=== PATIENT | female | born 1975 | race African-American/Black ===

== ENCOUNTER 2018-09-30 23:50 | Inpatient (IN) ==
[2018-10-01] MEDS ORDERED: Ipratropium/Albuterol Neb 3 ML IH ONE ×2 (00:06→06:52)
[2018-10-01] MEDS ORDERED: methylPREDNISolone 125 MG/2 ML VIAL IVP ONE (00:11)
--- NOTE | 2018-10-01 00:16 | Emergency Department Note ---
Disposition Clinical Impression: Asthma with exacerbation Qualifiers: Asthma severity: unspecified severity Asthma persistence: unspecified Qualified Code(s): J45.901 - Unspecified asthma with (acute) exacerbation Disposition: Still a Patient Condition: Fair Referrals: NONE,PCP [Primary Care Provider] - Forms: ED Satisfaction Letter Time of Disposition: 07:14 SOB HPI - General Chief Complaint: ED Shortness of Breath/Dyspnea Stated Complaint: coral Time Seen by Provider: 10/01/18 00:00 Source: patient Mode of arrival: private vehicle Limitations: no limitations Nursing Notes Reviewed: Yes Vital Signs Reviewed: Yes - History of Present Illness Patient is a 43-year-old female with a past medical history of asthma that reports that she started to feel acutely short of breath at approximately 10:30 this evening. Patient try a nebulizer at home without relief, states that she has been out of her albuterol inhalers for the last month. She states that she does not usually need to use her inhalers every day, it is just as needed. Patient was brought in by a friend, denies fevers or chills, nausea or vomiting, constipation, diarrhea, headache, dizziness lightheadedness, signs or symptoms of an upper respiratory infection. - Related Data Previous Rx's Medication Instructions Recorded Albuterol Neb [Proventil Neb] 2.5 mg IH Q4HR PRN #20 vial.neb 05/18/18 Albuterol Sulfate [Albuterol 2 puff IH Q4HR PRN #1 hfa.aer.ad 05/18/18 Inhaler] Allergies Allergy/AdvReac Type Severity Reaction Status Date / Time No Known Allergies Allergy Verified 09/30/18 23:58 All systems ED: reviewed and negative except as stated. Constitutional: Denies: fever, chills ENT ED: Denies: throat pain, congestion Cardiovascular: Denies: chest pain Respiratory: Reports: dyspnea, wheezes. Denies: hemoptysis, sputum production Gastrointestinal: Denies: abdominal pain, nausea, vomiting, diarrhea, constipation Musculoskeletal: Denies: back pain, neck pain Integumentary: Denies: rash, abrasion Neurological: Denies: headache, weakness, numbness, paresthesias Hematological/Lymphatic: Denies: easy bleeding, easy bruising Allergic/Immunologic: Denies: facial swelling, urticaria Past Medical History - Past Medical History Medical history: Reports: asthma Psychiatric history: Reports: no psych history - Social History Smoking Status: 2nd Hand Smoke Exposure Smokeless Tobacco Status: No Alcohol use: Reports: occasionally Drug use: Reports: none Physical Exam General: Pt is sitting upright in bed, leaning forward, speaking in 3-4 word sentences, appears to be acutely short of breath Head: atraumatic, normocephalic. ENT: No conjunctival injection, no scleral icterus. PERRLA. EOMI. Neuro: No focal deficits, no speech deficit, no facial droop, mentating well. Pulm: Diffuse wheezes present in alexia upper lobes, alexia lower lobes with some wheezes but sound diminished Cardio: heart tachycardic, no murmurs. Chest not tender to palpation. Abd: Soft, non-distended. Normoactive bowel sounds. Non-tender to palpation. No guarding. Non rigid. Extremities: No LE edema. No cyanosis, clubbing. Skin: warm, dry, intact. No rashes. Psych: Appropriate mood and affect. Answers questions appropriately. Cooperative with exam. - General Limitations: no limitations General appearance: alert Course Course Narrative: Pt with known hx of asthma, has been out of inhalers for last month, suspect acute asthma exacerbation. Will treat with 3 back to back duonebs, administer IV solumedrol 125, and get CXR. - Reevaluation(s) Reevaluation #1: Pts work of breathing improved, but her lung marin still exhibit wheezing in all marin and respiratory rate remains high. Will administer 2 albuterol nebulizer treatments. Suspicion that pt will require admission for asthma exacerbation. Time: 02:54 Reevaluation #2: Pt continues to be short of breath with increased work of breathing. Lungs still diffusely wheezing. Time: 06:50 Vital Signs O2 Sat by Pulse Oximetry 91 09/30/18 23:59 Temperature 98.3 F 10/01/18 00:07 Pulse Rate 104 10/01/18 05:55 Respiratory Rate 20 10/01/18 05:55 Blood Pressure 135/97 10/01/18 05:55 O2 Sat by Pulse Oximetry 92 10/01/18 05:55 Oxygen Delivery Oxygen Delivery Nasal Cannula Shortness of Breath/Dyspnea - MDM Narrative Medical decision making narrative: Pt will be signed out to dayshift - Dr. Tam Jordan and Dr. Matthew Bean. - Medical Records Medical records reviewed: Yes I reviewed the patient's medical records. - Lab Data Lab results reviewed: Yes I reviewed the patient's lab results. Result diagrams: 10/01/18 05:47 10/01/18 05:47 Lab Results 10/01/18 10/01/18 Range/Units 05:47 05:47 WBC 15.9 H (4.3-11.1) K/mcL RBC 4.66 (3.82-4.97) M/mcL Hgb 14.1 (11.5-15.4) g/dL Hct 41.8 (35.3-44.9) % MCV 89.7 (83.0-100.0) fL MCH 30.3 (28.0-33.3) pg MCHC 33.7 (31.6-35.5) g/dL RDW 12.9 (11.5-14.5) % Plt Count 232 (140-400) K/mcL MPV 11.0 (9.4-12.4) fL Immature Gran % 0.4 (0-4) % Seg Neutrophils % 95.9 % Lymphocytes % 2.8 % Monocytes % 0.6 % Eosinophils % 0.1 % Basophils % 0.2 % Neutrophils # 15.3 H (1.6-8.9) K/mcL Lymphocytes # 0.5 L (0.6-4.6) K/mcL Monocytes # 0.1 (0.0-1.3) K/mcL Eosinophils # 0.0 (0.0-0.6) K/mcL Basophils # 0.0 (0.0-0.2) K/mcL Sodium 138 (136-145) mEq/L Potassium 3.6 (3.5-5.1) mEq/L Chloride 107 (98-107) mEq/L Carbon Dioxide 22 L (23-29) mEq/L BUN 16 (6-20) mg/dL Creatinine 0.75 (0.60-1.20) mg/dL Est GFR ( Amer) > 60 (> 60) Est GFR (Non-Af Amer) > 60 (> 60) BUN/Creatinine Ratio 21 (6-26) Glucose 163 H (70-105) mg/dL Calculated Osmolality 291 (280-300) Calcium 9.0 (8.6-10.3) mg/dL
[2018-10-01] MEDS ORDERED: Albuterol 2.5 MG/3 ML NEBULIZER IH ONE (02:14)
--- NOTE | 2018-10-01 05:42 | Emergency Department Note ---
Disposition Clinical Impression: Asthma with exacerbation Qualifiers: Asthma severity: unspecified severity Asthma persistence: unspecified Qualified Code(s): J45.901 - Unspecified asthma with (acute) exacerbation Disposition: Still a Patient Condition: Fair Referrals: NONE,PCP [Primary Care Provider] - Forms: ED Satisfaction Letter General Adult HPI - General Chief complaint: ED Shortness of Breath/Dyspnea Stated complaint: coral Time Seen by Provider: 10/01/18 00:00 Source: patient Mode of arrival: private vehicle Limitations: no limitations Nursing Notes Reviewed: Yes Vital Signs Reviewed: Yes - History of Present Illness Pain Scale: 0 - Related Data Previous Rx's Medication Instructions Recorded Albuterol Neb [Proventil Neb] 2.5 mg IH Q4HR PRN #20 vial.neb 05/18/18 Albuterol Sulfate [Albuterol 2 puff IH Q4HR PRN #1 hfa.aer.ad 05/18/18 Inhaler] Allergies Allergy/AdvReac Type Severity Reaction Status Date / Time No Known Allergies Allergy Verified 09/30/18 23:58 Constitutional: Denies: fever, chills ENT ED: Denies: throat pain, congestion Cardiovascular: Denies: chest pain Respiratory: Reports: dyspnea, wheezes. Denies: hemoptysis, sputum production Gastrointestinal: Denies: abdominal pain, nausea, vomiting, diarrhea, constipation Musculoskeletal: Denies: back pain, neck pain Integumentary: Denies: rash, abrasion Neurological: Denies: headache, weakness, numbness, paresthesias Hematological/Lymphatic: Denies: easy bleeding, easy bruising Allergic/Immunologic: Denies: facial swelling, urticaria Past Medical History - Past Medical History Medical history: Reports: asthma Psychiatric history: Reports: no psych history - Social History Smoking Status: 2nd Hand Smoke Exposure Smokeless Tobacco Status: No Alcohol use: Reports: occasionally Drug use: Reports: none Physical Exam - General Limitations: no limitations General appearance: alert Course Vital Signs O2 Sat by Pulse Oximetry 91 09/30/18 23:59 Temperature 98.3 F 10/01/18 00:07 Pulse Rate 97 10/01/18 07:23 Respiratory Rate 22 10/01/18 07:23 Blood Pressure 143/82 10/01/18 07:23 O2 Sat by Pulse Oximetry 93 10/01/18 07:23 Oxygen Delivery Oxygen Delivery Nasal Cannula Medical Decision Making - Lab Data Lab results reviewed: Yes I reviewed the patient's lab results. Result diagrams: 10/01/18 05:47 10/01/18 05:47 Lab Results 10/01/18 10/01/18 Range/Units 05:47 05:47 WBC 15.9 H (4.3-11.1) K/mcL RBC 4.66 (3.82-4.97) M/mcL Hgb 14.1 (11.5-15.4) g/dL Hct 41.8 (35.3-44.9) % MCV 89.7 (83.0-100.0) fL MCH 30.3 (28.0-33.3) pg MCHC 33.7 (31.6-35.5) g/dL RDW 12.9 (11.5-14.5) % Plt Count 232 (140-400) K/mcL MPV 11.0 (9.4-12.4) fL Immature Gran % 0.4 (0-4) % Seg Neutrophils % 95.9 % Lymphocytes % 2.8 % Monocytes % 0.6 % Eosinophils % 0.1 % Basophils % 0.2 % Neutrophils # 15.3 H (1.6-8.9) K/mcL Lymphocytes # 0.5 L (0.6-4.6) K/mcL Monocytes # 0.1 (0.0-1.3) K/mcL Eosinophils # 0.0 (0.0-0.6) K/mcL Basophils # 0.0 (0.0-0.2) K/mcL Sodium 138 (136-145) mEq/L Potassium 3.6 (3.5-5.1) mEq/L Chloride 107 (98-107) mEq/L Carbon Dioxide 22 L (23-29) mEq/L BUN 16 (6-20) mg/dL Creatinine 0.75 (0.60-1.20) mg/dL Est GFR ( Amer) > 60 (> 60) Est GFR (Non-Af Amer) > 60 (> 60) BUN/Creatinine Ratio 21 (6-26) Glucose 163 H (70-105) mg/dL Calculated Osmolality 291 (280-300) Calcium 9.0 (8.6-10.3) mg/dL - Radiology Data Radiology results reviewed: Yes I reviewed the patient's radiology results. Chest X-Ray 10/01/18 00:11 IMPRESSION: No acute process. D/ / Deric Nelson MD / Deric Nelson MD Interpreting Provider: Deric Nelson MD Critical Care Time Critical Care Time: Yes Total Critical Care Time: 40 Attestation: Critical care performed: Time is exclusive of separately billable procedures. Time includes: direct patient care, patient reassessment, coordination of patient care, interpretation of data (laboratory data, radiology data, and respiratory data), review of p atient's medical records, medical consultation and documentation of patient care. Procedures included in critical care time: Procedures excluded from critical care time: Attestation Statement - Attestation Attestation: IHernan MD, personally evaluated this patient and discussed their management with the resident physician. I reviewed the resident's note and agree with the documented findings, medical decision making, and plan of care. 43-year-old female with history of asthma presents to the emergency department with a complaint of wheezing and shortness of breath which started earlier this evening but became severe about 1-2 hours prior to arrival. Patient used a nebulizer treatment at home without relief. She has not been ill otherwise. No fever. No increased cough. No chest pain. On examination patient is a well-developed well-nourished female in moderate respiratory distress. She is alert and oriented 3. There is no diaphoresis. Breath sounds are decreased bilaterally with diffuse tight bilateral inspiratory and expiratory wheezes. Heart tachycardic and regular. Abdomen soft and nontender with normal bowel sounds. Chest x-ray negative. Patient received triple DuoNeb treatment and Solu-Medrol IV. She had slight improvement in her wheezing and felt a little better. She received 2 additional nebulizer treatments of albuterol. On reexamination after all the above treatments patient still has diffuse bilateral inspiratory and expiratory wheezes. Oxygen saturation on room air drops to 93%. Patient has only had to be admitted once with her asthma in the distant past. She states that it has not been this bad in many years and she does not feel like she can go home. Dr. Diaz discussed the patient with the hospitalist, Dr. Aguilera, for admission however he requested the patient have an ABG prior to acceptance. At morning shift change patient is signed out to the oncoming dayshift team, Dr. Matthew Bean and Dr. Tam Jordan.
[2018-10-01 06:06] LABS: Basophils % 0.2 %; Eosinophils % 0.1 %; Hematocrit 41.8 % (35.3-44.9); Hemoglobin 14.1 g/dL (11.5-15.4); Immature Granulocytes % 0.4 % (0-4); Lymphocytes # 0.5 K/mcL (0.6-4.6); Lymphocytes % 2.8 %; Mean Corpuscular HGB Conc 33.7 g/dL (31.6-35.5); Mean Corpuscular Hemoglobin 30.3 pg (28.0-33.3); Mean Corpuscular Volume 89.7 fL (83.0-100.0); Monocytes # 0.1 K/mcL (0.0-1.3); Monocytes % 0.6 %; Neutrophils # 15.3 K/mcL (1.6-8.9); Platelet Count 232 K/mcL (140-400); Red Blood Count 4.66 M/mcL (3.82-4.97); Red Cell Distribution Width 12.9 % (11.5-14.5); Segmented Neutrophils % 95.9 %
[2018-10-01 06:25] LABS: BUN/Creatinine Ratio 21 (6-26); Blood Urea Nitrogen 16 mg/dL (6-20); Carbon Dioxide 22 mEq/L (23-29); Chloride 107 mEq/L (98-107); Glucose 163 mg/dL (70-105); Osmolality,Calculated 291 (280-300); Potassium 3.6 mEq/L (3.5-5.1); Sodium 138 mEq/L (136-145); eGFR For Non-African Americans > 60 (> 60)
[2018-10-01 08:33] LABS: VBG HCO3 21 mEq/L (21-27); VBG PCO2 41 mmHg (41-51); VBG PH 7.32 pH Units (7.32-7.42); VBG PO2 56 mmHg (25-50)
[2018-10-01] MEDS ORDERED: Acetaminophen 325 MG TABLET PO PRN (09:38)
[2018-10-01] MEDS ORDERED: Ondansetron 4 MG/2 ML VIAL IVP PRN (09:38)
--- NOTE | 2018-10-01 09:39 | Emergency Department Note ---
Disposition Clinical Impression: Asthma with exacerbation Qualifiers: Asthma severity: unspecified severity Asthma persistence: unspecified Qualified Code(s): J45.901 - Unspecified asthma with (acute) exacerbation Disposition: Still a Patient Condition: Fair Time of Disposition: 09:38 Chest Pain HPI - General Chief Complaint: ED Shortness of Breath/Dyspnea Stated Complaint: coral Time Seen by Provider: 10/01/18 00:00 Source: patient Mode of arrival: private vehicle Limitations: no limitations - History of Present Illness Severity scale (1-10): 0 - Related Data Previous Rx's Medication Instructions Recorded Albuterol Neb [Proventil Neb] 2.5 mg IH Q4HR PRN #20 vial.neb 05/18/18 Albuterol Sulfate [Albuterol 2 puff IH Q4HR PRN #1 hfa.aer.ad 05/18/18 Inhaler] Allergies Allergy/AdvReac Type Severity Reaction Status Date / Time No Known Allergies Allergy Verified 09/30/18 23:58 Constitutional: Denies: fever, chills ENT ED: Denies: throat pain, congestion Cardiovascular: Denies: chest pain Respiratory: Reports: dyspnea, wheezes. Denies: hemoptysis, sputum production Gastrointestinal: Denies: abdominal pain, nausea, vomiting, diarrhea, con stipation Musculoskeletal: Denies: back pain, neck pain Integumentary: Denies: rash, abrasion Neurological: Denies: headache, weakness, numbness, paresthesias Hematological/Lymphatic: Denies: easy bleeding, easy bruising Allergic/Immunologic: Denies: facial swelling, urticaria Chest Pain PMH - Past Medical History Medical history: Reports: asthma Psychiatric history: Reports: no psych history - Social History Smoking Status: 2nd Hand Smoke Exposure Alcohol use: Reports: occasionally Drug use: Reports: none Physical Exam - General Limitations: no limitations General appearance: alert Course Course Narrative: Patient was signed out from the nighttime team. Patient essentially presenting with an asthma exacerbation. Has been out of her home medications over the last month. Received IV steroids and duo nebs and albuterol treatment. Did end up having additional breathing treatments as well as magnesium. D-dimer was negative. VBG looked okay. Patient admitted the hospitalist service. Vital Signs O2 Sat by Pulse Oximetry 91 09/30/18 23:59 Temperature 98.3 F 10/01/18 00:07 Pulse Rate 97 10/01/18 07:23 Respiratory Rate 22 10/01/18 07:23 Blood Pressure 143/82 10/01/18 07:23 O2 Sat by Pulse Oximetry 93 10/01/18 07:23 Oxygen Delivery Oxygen Delivery Nasal Cannula Chest Pain - Lab Data Result diagrams: 10/01/18 05:47 10/01/18 05:47 Lab Results 10/01/18 10/01/18 10/01/18 Range/Units 05:47 05:47 08:13 WBC 15.9 H (4.3-11.1) K/mcL RBC 4.66 (3.82-4.97) M/mcL Hgb 14.1 (11.5-15.4) g/dL Hct 41.8 (35.3-44.9) % MCV 89.7 (83.0-100.0) fL MCH 30.3 (28.0-33.3) pg MCHC 33.7 (31.6-35.5) g/dL RDW 12.9 (11.5-14.5) % Plt Count 232 (140-400) K/mcL MPV 11.0 (9.4-12.4) fL Immature Gran % 0.4 (0-4) % Seg Neutrophils % 95.9 % Lymphocytes % 2.8 % Monocytes % 0.6 % Eosinophils % 0.1 % Basophils % 0.2 % Neutrophils # 15.3 H (1.6-8.9) K/mcL Lymphocytes # 0.5 L (0.6-4.6) K/mcL Monocytes # 0.1 (0.0-1.3) K/mcL Eosinophils # 0.0 (0.0-0.6) K/mcL Basophils # 0.0 (0.0-0.2) K/mcL D-Dimer 312 (0-500) ng/mLFEU VBG pH (7.32-7.42) pH Units VBG pCO2 (41-51) mmHg VBG pO2 (25-50) mmHg VBG HCO3 (21-27) mEq/L Sodium 138 (136-145) mEq/L Potassium 3.6 (3.5-5.1) mEq/L Chloride 107 (98-107) mEq/L Carbon Dioxide 22 L (23-29) mEq/L BUN 16 (6-20) mg/dL Creatinine 0.75 (0.60-1.20) mg/dL Est GFR ( Amer) > 60 (> 60) Est GFR (Non-Af Amer) > 60 (> 60) BUN/Creatinine Ratio 21 (6-26) Glucose 163 H (70-105) mg/dL Calculated Osmolality 291 (280-300) Calcium 9.0 (8.6-10.3) mg/dL 10/01/18 Range/Units 08:28 WBC (4.3-11.1) K/mcL RBC (3.82-4.97) M/mcL Hgb (11.5-15.4) g/dL Hct (35.3-44.9) % MCV (83.0-100.0) fL MCH (28.0-33.3) pg MCHC (31.6-35.5) g/dL RDW (11.5-14.5) % Plt Count (140-400) K/mcL MPV (9.4-12.4) fL Immature Gran % (0-4) % Seg Neutrophils % % Lymphocytes % % Monocytes % % Eosinophils % % Basophils % % Neutrophils # (1.6-8.9) K/mcL Lymphocytes # (0.6-4.6) K/mcL Monocytes # (0.0-1.3) K/mcL Eosinophils # (0.0-0.6) K/mcL Basophils # (0.0-0.2) K/mcL D-Dimer (0-500) ng/mLFEU VBG pH 7.32 (7.32-7.42) pH Units VBG pCO2 41 (41-51) mmHg VBG pO2 56 H (25-50) mmHg VBG HCO3 21 (21-27) mEq/L Sodium (136-145) mEq/L Potassium (3.5-5.1) mEq/L Chloride (98-107) mEq/L Carbon Dioxide (23-29) mEq/L BUN (6-20) mg/dL Creatinine (0.60-1.20) mg/dL Est GFR ( Amer) (> 60) Est GFR (Non-Af Amer) (> 60) BUN/Creatinine Ratio (6-26) Glucose (70-105) mg/dL Calculated Osmolality (280-300) Calcium (8.6-10.3) mg/dL Attestation Statement - Attestation Attestation: I, Tam Jordan, examined this patient and my medical decision-making was reviewed with the BOAT DECKHAND/PA/Advanced Practice Nurse/Resident Physician. I agree with the documented findings, disposition and treatment plan as described except to the extent set forth below. 43-year-old female presents emergency Department with concerns of difficulty in breathing. She is received in sign out at 7 AM pending reevaluation, disposition. Patient was given additional breathing treatments and magnesium sulfate in the emergency department to attempt to treat her likely asthma exacerbation. He should not states she had a similar asthma exacerbation in the mid 90s but has been fairly well since that time. She apparently had been using her prescribed medications of the past week when she continued to worsen. D-dimer is negative. Patient will be admitted to the hospitalist for further care and evaluation of asthma exacerbation.
--- NOTE | 2018-10-01 09:43 | Internal Med History&Physical ---
Date of Encounter: 10/01/18 Time of Encounter: 09:41 Internal Medicine - H&P: HPI Chief complaint: SOB Admitted From: Emergency Dept History of present illness: Caitlyn Sanchez is a 43 F w hx asthma who p/w SOB. Patient states she occasionally gets tight chest which improves spontaneously or with albuterol inhaler. Last admission for asthma was in 2004. Never intubated. 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 She noticed chest getting a bit tight, and when she went home she wasn't feeling well so took a nap. Her daughter woke her up and said she was "whistling" while she slept, and patient could tell right away that she was wheezing. SOB continued to worsen so she came to hospital. Denies F/C/MURRAY/N/V/D, no CP, no leg swelling. 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 In the ED, pt tachypneic and tachycardic, working to breath, very wheezy on exam. D-dimer negative, CXR normal. Given solumedrol and frequent nebs with only minor improvement. VBG w CO2 41 which corrects down a bit and fits with her current clinical status of mild resting dyspnea without tachypnea. Admitted to med/surg (no need for ICU at this point) for further eval. Past medical, surgical, social, and family histories reviewed and updated as below, with addition to PSH of no surgeries and FH of children with asthma. Past Med Surg Social Fam HX - Past Medical History Medical history: asthma Psychiatric history: no psych history - Social History Smoking Status: 2nd Hand Smoke Exposure Smokeless Tobacco Status: No Alcohol use: occasionally Drug use: none Internal Medicine - H&P: Meds Albuterol Neb [Proventil Neb] 2.5 mg IH Q4HR PRN #20 vial.neb 05/18/18 [Rx] Albuterol Sulfate [Albuterol Inhaler] 2 puff IH Q4HR PRN #1 hfa.aer.ad 05/18/18 [Rx] Allergy/AdvReac Type Severity Reaction Status Date / Time No Known Allergies Allergy Verified 09/30/18 23:58 All Systems PM: A 10-system review of systems was performed and is negative for pertinent findings except as documented above in the HPI. - Constitutional Vitals: Temp Pulse Resp BP Pulse Ox 98.3 F 97 22 143/82 93 10/01/18 00:07 10/01/18 07:23 10/01/18 07:23 10/01/18 07:23 10/01/18 07:23 Exam: General: NAD, good eye contact, ill appearing and mildly labored breathing Head: Atraumatic, normocephalic. Face symmetric Eyes: EOMI, sclerae anicteric ENT: Mucous membranes moist. Normal oral mucosa and dentition. Trachea midline. Thoracic: No visible chest wall deformities. Biphasic wheezing throughout entirety of each phase in all lung marin, prolonged expiration Cardio: Normal S1 and S2, regular rhythm, tachycardic Abdomen: Soft, nontender, nondistended. Extremities: Warm, well perfused. DP pulses 2+ b/l. No edema Skin: Intact. No rashes, bruises, or ulcers Neuro: Awake, fully oriented. Good memory, concentration, attention. Speech fluent. Internal Med - H&P Results - Labs CBC & Chem 7: 10/01/18 05:47 10/01/18 05:47 Labs: Short CBC 10/01/18 Range/Units 05:47 WBC 15.9 H (4.3-11.1) K/mcL Hgb 14.1 (11.5-15.4) g/dL Hct 41.8 (35.3-44.9) % Plt Count 232 (140-400) K/mcL Neutrophils # 15.3 H (1.6-8.9) K/mcL BMP 10/01/18 05:47 Sodium 138 Potassium 3.6 Chloride 107 Carbon Dioxide 22 L BUN 16 Creatinine 0.75 Glucose 163 H Calcium 9.0 - ABG Interpretation ABG results: 10/01/18 08:28 VBG pH 7.32 VBG pCO2 41 VBG pO2 56 H VBG HCO3 21 - Impressions ITS Impressions Chest X-Ray 10/01/18 00:11 IMPRESSION: No acute process. D/ / Deric Nelson MD / Deric Nelson MD Interpreting Provider: Deric Nelson MD - Summary of Assessment and Plan Summary of Assessment and Plan: Caitlyn Sanchez is a 43 F w hx asthma who p/w SOB and wheezing concerning for asthma exacerbation. Asthma in acute exacerbation / Status asthmaticus: VBG without hypercapnia, is slightly concerning that CO2 is in normal range as opposed to low as expected but pt clinically is improving from presentation. Rec'd solumedrol 125 and Mg 2g in ED. - check Mg level - albuterol nebs q2h&prn - solumedrol 40 tid until improves and will switch to 40 daily - will need started/continued on inhaled corticosteroids at discharge Acute hypoxic respiratory failure: requiring 2L O2 to maintain sats >93% - supplemental O2, wean as able - treat cause as above - walk test prior to discharge Hypophosphatemia: replace and monitor PPx: lovenox FEN: regular, no MIVF Lines: PIV Consults: Code: Full Dispo: patient requires inpatient eval and management at this time. Anticipate 2-3 days. Will be homegoing
[2018-10-01 10:01] LABS: Magnesium 2.1 mg/dL (1.6-2.6); Phosphorous 2.6 mg/dL (2.7-4.5)
[2018-10-01] MEDS: Ipratropium/Albuterol Neb 3 ML IH SCH ×4 (11:22→23:18)
[2018-10-01] MEDS: Albuterol 2.5 MG/3 ML NEBULIZER IH SCH ×4 (11:23→23:22)
[2018-10-01] MEDS: MethylPREDNISolone 40 MG/ML VIAL IVP SCH ×3 (11:43→20:15)
[2018-10-01 12:51] LABS: Adenovirus Not Detected (Not Detect); Bordetella Pertussis Not Detected (Not Detect); Chlamydophila pneumoniae Not Detected (Not Detect); Coronavirus 229E Not Detected (Not Detect); Coronavirus HKU1 Not Detected (Not Detect); Coronavirus NL63 Not Detected (Not Detect); Coronavirus OC43 Not Detected (Not Detect); Human Metapneumovirus Not Detected (Not Detect); Human Rhinovirus/Enterovirus DETECTED (Not Detect); Influenza A Subtype 2009 H1 Not Detected (Not Detect); Influenza A Untypeable Not Detected (Not Detect); Influenza B Not Detected (Not Detect); Mycoplasma pneumoniae Not Detected (Not Detect); Parainfluenza Virus 1 Not Detected (Not Detect); Parainfluenza Virus 2 Not Detected (Not Detect); Parainfluenza Virus 3 Not Detected (Not Detect); Parainfluenza Virus 4 Not Detected (Not Detect); Respiratory Syncytial Virus Not Detected (Not Detect)
[2018-10-02] MEDS ORDERED: Albuterol 2.5 MG/3 ML NEBULIZER IH PRN (01:19)
[2018-10-02] MEDS: Benzonatate 100 MG CAPSULE PO PRN (02:53)
[2018-10-02] MEDS: Ipratropium/Albuterol Neb 3 ML IH SCH ×6 (03:48→23:29)
[2018-10-02] MEDS: MethylPREDNISolone 40 MG/ML VIAL IVP SCH ×3 (05:02→20:08)
[2018-10-02] MEDS: *HR* Enoxaparin 40 MG/0.4 ML SYRINGE SQ SCH (05:02)
[2018-10-02 05:24] LABS: Hematocrit 39.6 % (35.3-44.9); Hemoglobin 13.7 g/dL (11.5-15.4); Mean Corpuscular HGB Conc 34.6 g/dL (31.6-35.5); Mean Corpuscular Hemoglobin 30.4 pg (28.0-33.3); Mean Platelet Volume 11.5 fL (9.4-12.4); Platelet Count 238 K/mcL (140-400); Red Cell Distribution Width 13.4 % (11.5-14.5)
[2018-10-02 05:42] LABS: BUN/Creatinine Ratio 19 (6-26); Blood Urea Nitrogen 11 mg/dL (6-20); Calcium 9.6 mg/dL (8.6-10.3); Carbon Dioxide 23 mEq/L (23-29); Chloride 107 mEq/L (98-107); Glucose 141 mg/dL (70-105); Magnesium 2.3 mg/dL (1.6-2.6); Osmolality,Calculated 286 (280-300); Potassium 4.2 mEq/L (3.5-5.1); Sodium 137 mEq/L (136-145); eGFR For Non-African Americans > 60 (> 60)
--- NOTE | 2018-10-02 07:59 | Internal Med Progress Note ---
Hospitalist Progress Note - Encounter Date of Encounter: 10/02/18 Time of Encounter: 07:32 - Subjective Interval History: Patient seen and examined this morning at bedside. No acute overnight events. Breathing significantly improved. Denies any chest pain. Has some cough. Denies any bowel or urinary complaints. - Exam Vitals: Temp Pulse Resp BP Pulse Ox 98.1 F 102 18 140/76 93 10/02/18 07:48 10/02/18 07:48 10/02/18 07:48 10/02/18 07:48 10/02/18 07:48 Exam: General: In no acute distress. Respiratory exam: b/l rhonchi, wheezes. Good air entry Cardiovascular exam: RRR, +S1, +S2. no murmur, gallop, rubs. GI/Abdominal exam: Non-tender, Non-distended, normal bowel sounds, soft, no peritoneal signs. Extremities exam: no pedal edema, pulses palpable in b/l lower extremities. no calf tenderness Neurological exam: CN II-XII intact, AO X3, no focal deficits. Skin exam: No skin rash - Summary of Assessment and Plan Summary of Assessment and Plan: Asthma in acute exacerbation - likely precipitated by enteroviral infection - improved with steroids, magnesium and duonebs q4h - Will taper steroids. c/w albuterol nebs q4prn - will need to be discharged with inhaled corticosteroids Acute hypoxic respiratory failure - related to asthma exacerbation - management as above - walk test prior to discharge Leukocytosis - likely related to steroid use - CXR without acute process - antibiotics not indicated for now DVT PPx - lovenox - Time Spent with Patient Total time spent is greater than 50% in coordination of care (as documented) at patient's floor/unit and/or counseling patient: Internal Medicine: Result - Labs CBC & Chem 7: 10/02/18 04:29 10/02/18 04:29 Labs: Short CBC 10/02/18 Range/Units 04:29 WBC 21.3 H (4.3-11.1) K/mcL Hgb 13.7 (11.5-15.4) g/dL Hct 39.6 (35.3-44.9) % Plt Count 238 (140-400) K/mcL BMP 10/01/18 10/02/18 05:47 04:29 Sodium 138 137 Potassium 3.6 4.2 Chloride 107 107 Carbon Dioxide 22 L 23 BUN 16 11 Creatinine 0.75 0.58 L Glucose 163 H 141 H Calcium 9.0 9.6 - ABG Interpretation ABG results: PT/INR, D-dimer D-Dimer 312 ng/mLFEU (0-500) 10/01/18 08:13 Consult Discharge Plan - Plan Referrals: NONE,PCP [Primary Care Provider] -
[2018-10-03] MEDS: Ipratropium/Albuterol Neb 3 ML IH SCH ×3 (03:47→11:09)
[2018-10-03] MEDS: *HR* Enoxaparin 40 MG/0.4 ML SYRINGE SQ SCH (05:48)
[2018-10-03] MEDS: Benzonatate 100 MG CAPSULE PO PRN (05:53)
[2018-10-03 08:01] VITALS: BP 115/58
[2018-10-03] MEDS: MethylPREDNISolone 40 MG/ML VIAL IVP SCH (08:15)
--- NOTE | 2018-10-03 10:14 | Discharge Summary ---
- NOTES TO OUTPATIENT PROVIDER Notes to Outpatient Provider: Patient was admitted for asthma exacerbation secondary to rhinovirus infection. Improved with steroids and bronchodilators. Did not require oxygen at the time of discharge. Will be discharged home with pulmonary follow-up as an outpatient. Date of Encounter: 10/03/18 Time of Encounter: 07:30 - Discharge Diagnosis (1) Asthma with exacerbation Priority: Primary Status: Acute Qualifiers: Asthma severity: unspecified severity Asthma persistence: unspecified Qualified Code(s): J45.901 - Unspecified asthma with (acute) exacerbation Hospital course: Ms. Sanchez is a 43 year old female who was admitted for asthma exacerbation sec ondary to rhinovirus infection. Improved with steroids and bronchodilators. Did not require oxygen at the time of discharge. Will be discharged home with tapering course of steroids and pulmonary follow-up as an outpatient. Discharge discussed with: patient, nurse - Time Spent with Patient Total time spent providing and/or coordinating discharge services: 31 mins - Discharge Medications Prescriptions: New Benzonatate [Tessalon] 100 mg PO TID PRN #12 capsule PRN Reason: Cough predniSONE [PredniSONE] 40 mg PO DAILY #9 tablet Continue Albuterol Neb [Proventil Neb] 2.5 mg IH Q4HR PRN #30 vial.neb PRN Reason: Wheezing Albuterol Sulfate [Albuterol Inhaler] 2 puff IH Q4HR PRN #1 hfa.aer.ad PRN Reason: Shortness Of Breath Home Medications: Albuterol Neb [Proventil Neb] 2.5 mg IH Q4HR PRN #30 vial.neb 10/03/18 [Rx] Albuterol Sulfate [Albuterol Inhaler] 2 puff IH Q4HR PRN #1 hfa.aer.ad 10/03/18 [Rx] Benzonatate [Tessalon] 100 mg PO TID PRN #12 capsule 10/03/18 [Rx] predniSONE [PredniSONE] 40 mg PO DAILY #9 tablet 10/03/18 [Rx] Allergies/Adverse Reactions: Allergy/AdvReac Type Severity Reaction Status Date / Time No Known Allergies Allergy Verified 10/01/18 20:39 Date of admission: 10/01/18 09:38 Primary care physician: PCP NONE Consults: 10/02/18 08:52 Consult to Nurse Navigator [CONS] Routine Comment: COPD - Constitutional Vitals: Temp Pulse Resp BP Pulse Ox 98.3 F 76 16 115/58 97 10/03/18 07:57 10/03/18 07:57 10/03/18 07:57 10/03/18 07:57 10/03/18 07:57 Exam: General: In no acute distress. Respiratory exam: minimal, scattered bilateral rhonchi, wheezes. Good air entry Cardiovascular exam: RRR, +S1, +S2. GI/Abdominal exam: Soft, non-tender, Non-distended Neurological exam: no focal deficits. - Patient Status Disposition: Home, Self-Care Condition: Fair Functional capacity at discharge: independent ambulation Overall status at discharge: patient is progressing back to baseline - Discharge Instructions Instructions: Asthma (DC) Follow Up With: Martín Smith DO [Partnered Physician] - 10/03/18 4:00 pm (Please bring your ID, insurance card, and list of any home medications that you are taking. If you need to cancel or reschedule your appointment please give the office a 24 hour notice. Thank you. ) Additional Instructions: Discharged on tapering course of steroid nebulizer and inhaler refilled - Diet and Activity Activity: resume usual activities as tolerated Diet: regular diet
== END 2018-10-03 13:56 | disposition home or self-care (01) | DRG 141 ==
LOC: 3BNU 23:50 → EMEROOARM 23:50 → SUATTDRO 10-01 09:38 → 3BNU 10-01 10:51
PROVIDERS: ADMIT Internal Medicine; ATTEND Internal Medicine

== ENCOUNTER 2019-03-19 17:18 | Inpatient (IN) ==
[2019-03-19] MEDS ORDERED: 0.9 % Sodium Chloride 1,000 ML IVC ONE ×2 (17:28→18:51)
[2019-03-19] MEDS ORDERED: Ibuprofen 600 MG TABLET PO ONE (17:57)
--- NOTE | 2019-03-19 18:00 | Emergency Department Note ---
Disposition Clinical Impression: Pyelonephritis Sepsis Qualifiers: Sepsis type: sepsis due to unspecified organism Sepsis acute organ dysfunction status: without acute organ dysfunction Qualified Code(s): A41.9 - Sepsis, unspecified organism Disposition: Admitted As Inpatient Condition: Fair Time of Disposition: 20:36 General Adult HPI - General Chief complaint: ED Back Pain/Injury Stated complaint: ABD Pain,MURRAY Time Seen by Provider: 03/19/19 17:26 Source: patient Mode of arrival: ambulatory Limitations: no limitations Nursing Notes Reviewed: Yes Vital Signs Reviewed: Yes - History of Present Illness HPI Narrative: 44F with PMHx of asthma presents emergency department with sudden onset of right-sided back pain and a generalized unwell feeling. Patient states that yesterday after eating she developed some right-sided back pain that hit her abdomen over. She has been generally not feeling well since this and states she has been dealing with chills and hot sweats on and off since onset of the back pain. She describes the pain as coming and going, sometimes a 0 and other times going up to a 10 out of 10. The pain is exacerbated with movement and by touch. She has been able to eat without increase in the pain. She denies urinary symptoms, chest pain, cough, abdominal pain. She also admits to having a headache over the past day and states that she does not normally have headaches. She took 2 Aleve yesterday which helped with her back pain for a couple of hour s. She took 2 more Aleve earlier today which did not help with her pain. Pain Scale: 2 - Related Data Home Medications Medication Instructions Recorded Confirmed Albuterol Neb [Proventil Neb] 2.5 mg IH Q8H PRN 03/19/19 03/19/19 Albuterol Sulfate [Proventil 2 puff IH Q6H PRN 03/19/19 03/19/19 Inhaler] Allergies Allergy/AdvReac Type Severity Reaction Status Date / Time No Known Allergies Allergy Verified 03/19/19 17:21 All systems ED: reviewed and negative except as stated. Review of Systems: As Per HPI Constitutional: Denies: fever, chills, weakness Cardiovascular: Denies: chest pain, palpitations, dyspnea on exertion Respiratory: Denies: cough, dyspnea, wheezes Gastrointestinal: Denies: abdominal pain, nausea, vomiting Genitourinary: Denies: dysuria, hematuria Musculoskeletal: Reports: back pain Neurological: Reports: headache Endocrine: Denies: fatigue Past Medical History - Past Medical History Attestation: Yes The following information was validated with the patient. Source: patient Medical history: Reports: asthma Psychiatric history: Reports: no psych history - Social History Smoking Status: Former smoker Smokeless Tobacco Status: No Alcohol use: Reports: occasionally Drug use: Reports: none Physical Exam - General Limitations: no limitations General appearance: alert, in no apparent distress - Head Head exam: atraumatic, normocephalic - Chest Chest inspection: Present: normal inspection. Absent: tenderness, rash - Respiratory Respiratory exam: Present: normal lung sounds bilaterally. Absent: wheezes - Cardiovascular Cardiovascular exam: Present: normal rhythm, tachycardia - Abdominal Exam Abdominal exam: Present: soft, Non-Tender. Absent: distention, guarding, rebou nd, rigidity, Nichole's sign, tenderness at McBurney's Point - Extremities Exam Extremities exam: Present: normal inspection. Absent: tenderness, pedal edema - Back Exam Back exam: Present: CVA tenderness (R). Absent: CVA tenderness (L) - Neurological Exam Neurological exam: Present: alert, oriented X3 - Psychiatric Psychiatric exam: Present: normal affect, normal mood - Skin Skin exam: Present: warm, dry, intact Course Vital Signs Temperature 101.1 F H 03/19/19 17:19 Pulse Rate 132 03/19/19 17:19 Respiratory Rate 20 03/19/19 17:19 Blood Pressure 118/81 03/19/19 17:19 O2 Sat by Pulse Oximetry 97 03/19/19 17:19 Temperature 100.5 F H 03/19/19 19:10 Pulse Rate 96 03/19/19 20:31 Respiratory Rate 20 03/19/19 20:31 Blood Pressure 126/71 03/19/19 20:31 O2 Sat by Pulse Oximetry 98 03/19/19 20:31 Oxygen Delivery Oxygen Delivery Room Air Medical Decision Making - [facility] Narrative Medical decision making narrative: Patient presents with sudden onset of right-sided back pain which has been waxing and waning quality since onset yesterday along with a fever concerning for a kidney infection versus infected stone. We will obtain basic labs, urinalysis and CAT scan of the patient's abdomen and pelvis as well as a chest x-ray to rule out other infectious processes. 1855 - patient's initial labs show a significant leukocytosis of 26,000, but other labs including lactic acid are within normal limits. She has not been able to urinate for us at this time. We will obtain urine via straight catheter to look for source of infection. CT of the abdomen and pelvis has been taken and is pending at this time. We will administer another liter of fluids. 1945 - pt has a UTI. We will administer Rocephin and plan on admission to the hospital for pyelonephritis and sepsis. Pt is agreeable with this plan of care. - Medical Records Medical records reviewed: Yes I reviewed the patient's medical records. - Lab Data Lab results reviewed: Yes I reviewed the patient's lab results. Result diagrams: 03/19/19 17:38 03/19/19 17:38 Lab Results 03/19/19 03/19/19 03/19/19 Range/Units 17:38 17:38 17:38 WBC 26.5 H (4.3-11.1) K/mcL RBC 4.69 (3.82-4.97) M/mcL Hgb 14.6 (11.5-15.4) g/dL Hct 42.7 (35.3-44.9) % MCV 91.0 (83.0-100.0) fL MCH 31.1 (28.0-33.3) pg MCHC 34.2 (31.6-35.5) g/dL RDW 12.0 (11.5-14.5) % Plt Count 184 (140-400) K/mcL MPV 11.5 (9.4-12.4) fL Seg Neutrophils % 86.0 % Band Neutrophils % 8.0 H (0-4) % Lymphocytes % 6.0 % Neutrophils # 24.9 H (1.6-8.9) K/mcL Lymphocytes # 1.6 (0.6-4.6) K/mcL Platelet Estimate Normal (Normal) PT 13.1 H (9.4-12.1) Seconds INR 1.2 Sodium 133 L (136-145) mEq/L Potassium 3.5 (3.5-5.1) mEq/L Chloride 103 (98-107) mEq/L Carbon Dioxide 21 L (23-29) mEq/L BUN 10 (6-20) mg/dL Creatinine 0.83 (0.60-1.20) mg/dL Est GFR ( Amer) > 60 (> 60) Est GFR (Non-Af Amer) > 60 (> 60) BUN/Creatinine Ratio 12 (6-26) Glucose 183 H (70-105) mg/dL Calculated Osmolality 280 (280-300) Lactic Acid (0.5-2.2) mmol/L Calcium 8.4 L (8.6-10.3) mg/dL Phosphorus 1.6 L (2.7-4.5) mg/dL Magnesium 1.7 (1.6-2.6) mg/dL Total Bilirubin 0.9 (0.3-1.0) mg/dL Direct Bilirubin 0.2 (0.0-0.2) mg/dL Indirect Bilirubin 0.7 (0.0-1.2) mg/dL AST 17 (13-39) Units/L ALT 15 (7-52) Units/L Alkaline Phosphatase 61 (34-104) Units/L Troponin I 0.03 (< 0.04) ng/mL Serum Total Protein 6.4 (6.4-8.9) g/dL Albumin 3.8 (3.5-5.7) g/dL Globulin 2.6 (2.4-3.5) g/dL Albumin/Globulin Ratio 1.5 (1.1-2.2) Serum , Qual (Negative) Urine Color (Yellow) Urine Clarity (Clear) Urine pH (5.0-8.0) pH Units Ur Specific [place] (1.010-1.025) Urine Protein (Neg-Trace) mg/dL Urine Glucose (UA) (Normal) mg/dL Urine Ketones (Negative) mg/dL Urine Blood (Negative) Urine Nitrite (Negative) Urine Bilirubin (Negative) Urine Urobilinogen (Normal) mg/dL Ur Leukocyte Esterase (Negative) Urine Microscopic RBC (0-3) per hpf Urine Microscopic WBC (0-3) per hpf Ur Squamous Epith Cells (None-Few) per lpf Urine Bacteria (None-Few) per hpf Hyaline Casts (None-Few) per lpf Urine Mucus (Few) Ur Culture Indicated? (NO) 03/19/19 03/19/19 03/19/19 Range/Units 17:38 17:38 19:12 WBC (4.3-11.1) K/mcL RBC (3.82-4.97) M/mcL Hgb (11.5-15.4) g/dL Hct (35.3-44.9) % MCV (83.0-100.0) fL MCH (28.0-33.3) pg MCHC (31.6-35.5) g/dL RDW (11.5-14.5) % Plt Count (140-400) K/mcL MPV (9.4-12.4) fL Seg Neutrophils % % Band Neutrophils % (0-4) % Lymphocytes % % Neutrophils # (1.6-8.9) K/mcL Lymphocytes # (0.6-4.6) K/mcL Platelet Estimate (Normal) PT (9.4-12.1) Seconds INR Sodium (136-145) mEq/L Potassium (3.5-5.1) mEq/L Chloride (98-107) mEq/L Carbon Dioxide (23-29) mEq/L BUN (6-20) mg/dL Creatinine (0.60-1.20) mg/dL Est GFR ( Amer) (> 60) Est GFR (Non-Af Amer) (> 60) BUN/Creatinine Ratio (6-26) Glucose (70-105) mg/dL Calculated Osmolality (280-300) Lactic Acid 1.5 (0.5-2.2) mmol/L Calcium (8.6-10.3) mg/dL Phosphorus (2.7-4.5) mg/dL Magnesium (1.6-2.6) mg/dL Total Bilirubin (0.3-1.0) mg/dL Direct Bilirubin (0.0-0.2) mg/dL Indirect Bilirubin (0.0-1.2) mg/dL AST (13-39) Units/L ALT (7-52) Units/L Alkaline Phosphatase (34-104) Units/L Troponin I (< 0.04) ng/mL Serum Total Protein (6.4-8.9) g/dL Albumin (3.5-5.7) g/dL Globulin (2.4-3.5) g/dL Albumin/Globulin Ratio (1.1-2.2) Serum , Qual Negative (Negative) Urine Color Yellow (Yellow) Urine Clarity Cloudy A (Clear) Urine pH 6.0 (5.0-8.0) pH Units Ur Specific [place] 1.024 (1.010-1.025) Urine Protein 100 H (Neg-Trace) mg/dL Urine Glucose (UA) 100 H (Normal) mg/dL Urine Ketones 15 H (Negative) mg/dL Urine Blood Small H (Negative) Urine Nitrite Positive A (Negative) Urine Bilirubin Negative (Negative) Urine Urobilinogen Normal (Normal) mg/dL Ur Leukocyte Esterase Moderate H (Negative) Urine Microscopic RBC 5-15 H (0-3) per hpf Urine Microscopic WBC TNTC H (0-3) per hpf Ur Squamous Epith Cells Many H (None-Few) per lpf Urine Bacteria Many H (None-Few) per hpf Hyaline Casts None Seen (None-Few) per lpf Urine Mucus Few (Few) Ur Culture Indicated? YES A (NO) - Radiology Data Radiology results reviewed: Yes I reviewed the patient's radiology results. - EKG Data EKG #1 EKG attestation: Yes I reviewed and interpreted this EKG. EKG results narrative: EKG obtained at 1820 on 03/19/2019 Heart rate 1 11 bpm, AR interval 133, QRS duration 75, QT 302, QTC 411 Sinus tachycardia with left anterior fascicular block. No signs of ST segment elevations or depressions. No other T-wave abnormalities. There are inverted P waves in leads V1, V2, aVL. There are no changes when compared to previous EKG dated 07/13/2010. Attestation Statement - Attestation Attestation: I, Tam Jordan, examined this patient and my medical decision-making was reviewed with the SNORKELLING INSTRUCTOR/PA/Advanced Practice Nurse/Resident Physician. I agree with the documented findings, disposition and treatment plan as described except to the extent set forth below. 44 yo female presents emergency Department with concerns of right flank pain. Patient states symptoms have been present over the past 24 hours. She denies significant hematuria or dysuria. Patient denies recent trauma. Denies chest pain or palpitations or shortness of breath. Patient has right-sided CVA tenderness palpation. She has a urinary tract infection on urinalysis. Patient was tachycardic on initial presentation this improved with IV fluids. Patient was treated with ceftriaxone for likely pyelonephritis and sepsis. The high probability of a clinically significant, sudden or life threatening deterioration of the cardiovascular system(s) required my full and direct attention, intervention and personal management. The aggregate critical care time was 45 minutes. This time is in addition to time spent performing reported procedures but includes the following: x Data Review and interpretation x Patient assessment and monitoring of vital signs x Documentation x Medication orders and management
[2019-03-19 18:09] LABS: Hematocrit 42.7 % (35.3-44.9); Hemoglobin 14.6 g/dL (11.5-15.4); Mean Corpuscular HGB Conc 34.2 g/dL (31.6-35.5); Mean Corpuscular Hemoglobin 31.1 pg (28.0-33.3); Mean Platelet Volume 11.5 fL (9.4-12.4); Platelet Count 184 K/mcL (140-400); Red Blood Count 4.69 M/mcL (3.82-4.97); White Blood Count 26.5 K/mcL (4.3-11.1)
[2019-03-19 18:14] LABS: INR 1.2; Prothrombin Time 13.1 Seconds (9.4-12.1)
[2019-03-19 18:28] LABS: Alanine Aminotransferase 15 Units/L (7-52); Albumin 3.8 g/dL (3.5-5.7); Albumin/Globulin Ratio 1.5 (1.1-2.2); Alkaline Phosphatase 61 Units/L (34-104); Aspartate Amino Transferase 17 Units/L (13-39); BUN/Creatinine Ratio 12 (6-26); Bilirubin,Direct 0.2 mg/dL (0.0-0.2); Bilirubin,Indirect 0.7 mg/dL (0.0-1.2); Bilirubin,Total 0.9 mg/dL (0.3-1.0); Blood Urea Nitrogen 10 mg/dL (6-20); Calcium 8.4 mg/dL (8.6-10.3); Carbon Dioxide 21 mEq/L (23-29); Chloride 103 mEq/L (98-107); Globulin 2.6 g/dL (2.4-3.5); Glucose 183 mg/dL (70-105); Magnesium 1.7 mg/dL (1.6-2.6); Osmolality,Calculated 280 (280-300); Phosphorous 1.6 mg/dL (2.7-4.5); Potassium 3.5 mEq/L (3.5-5.1); Sodium 133 mEq/L (136-145); Total Protein 6.4 g/dL (6.4-8.9); Troponin I 0.03 ng/mL (< 0.04); eGFR For African Americans > 60 (> 60); eGFR For Non-African Americans > 60 (> 60)
[2019-03-19 19:01] LABS: Lymphocytes # 1.6 K/mcL (0.6-4.6); Neutrophils # 24.9 K/mcL (1.6-8.9); Platelet Estimate Normal (Normal)
[2019-03-19 19:30] LABS: Bilirubin,Urine Negative (Negative); Blood,Urine Small (Negative); Clarity,Urine Cloudy (Clear); Color,Urine Yellow (Yellow); Glucose,Urine (UA) 100 mg/dL (Normal); Ketones,Urine 15 mg/dL (Negative); Leukocyte Esterase,Urine Moderate (Negative); Nitrite,Urine Positive (Negative); Protein,Urine 100 mg/dL (Neg-Trace); Specific Gravity,Urine 1.024 (1.010-1.025); Urobilinogen,Urine Normal (Normal)
[2019-03-19 19:33] LABS: Bacteria,Urine Many per hpf (None-Few); Squamous Epithelial Cell,Urine Many per lpf (None-Few); WBC,Urine TNTC per hpf (0-3)
[2019-03-19] MEDS ORDERED: cefTRIAXone 1,000 MG in Water for inj. (sterile) 10 ML IVP ONE (19:43)
[2019-03-19 20:05] LABS: Hyaline Casts,Urine None Seen per lpf (None-Few); Mucus,Urine Few (Few)
[2019-03-19] MEDS ORDERED: Naloxone 0.4 MG/ML INJ IVP PRN (21:42)
[2019-03-19] MEDS ORDERED: Dextrose Gel 15 GM/37.5 ML TUBE PO PRN ×2 (21:42)
[2019-03-19] MEDS ORDERED: *HR* Dextrose 50 % in Water (Syg) 50 ML SYRINGE IVP PRN (21:42)
[2019-03-19] MEDS ORDERED: D5% in Water 1,000 ML IVC PRN (21:42)
[2019-03-19] MEDS ORDERED: Ondansetron ODT 4 MG TAB.RAPDIS SL PRN (21:42)
[2019-03-19] MEDS ORDERED: Ringers Solution, Lactated 1,000 ML IVC SCH (21:45)
--- NOTE | 2019-03-19 22:00 | Internal Med History&Physical ---
Date of Encounter: 03/20/19 Time of Encounter: 21:50 Internal Medicine - H&P: HPI Chief complaint: back pain Admitted From: Home Plans for Post Hospital Care: Home History of present illness: Ms. Sanchez is a 44 year old female with past medical history of asthma presented to the ED for right lower back pain. Face to face encounter occurred at 20:10pm. Patient reported that the low back pain awakened the patient from sleep in the morning. The pain of the time was a sharp nonradiating localized to the left lower back worsened with movement and not alleviated despite taking Aleve and showering. Reported chills, otherwise no association of fever, nausea, vomiting, diarrhea, chest pain, shortness of breath. Personally reviewed patient's past family, medical, surgical and social History. Patient reported that she c ontinues to menstruate and is currently in her menstrual period currently. Patient also reported sexual intercourse unsafe due to history of tubal ligation with significant other 2 days ago and then the next day felt the sharp right lower back pain. Code status discussed and the patient is a full code. Past Med Surg Social Fam HX - Past Medical History Medical history: asthma Psychiatric history: no psych history - Past Surgical History Additional surgical history: Sinus surgery, Tonsils and adenoids - Social History Smoking Status: Former smoker Smokeless Tobacco Status: No Alcohol use: occasionally Drug use: none - Family History Mother Living Status: Still Living Hx Family Respiratory Disorders: Yes (Asthma) Father Living Status: Still Living Hx Family Cancer: Yes (prostate) Internal Medicine - H&P: Meds Albuterol Neb [Proventil Neb] 2.5 mg IH Q8H PRN 03/19/19 [History] Albuterol Sulfate [Proventil Inhaler] 2 puff IH Q6H PRN 03/19/19 [History] Allergy/AdvReac Type Severity Reaction Status Date / Time No Known Allergies Allergy Verified 03/19/19 17:21 All Systems PM: A 10-system review of systems was performed and is negative for pertinent findings except as documented above in the HPI. Review of systems: General: No unintentional weightloss, No fever Head: No headahce, No injury. Ears: No discharge, No earache Eyes: No drainage, No eye pain Mouth and Throat: No new ulcers, No pain Nose and Sinus: No new congestion, No pain, Respiratory: No cough, No sputum production, No dyspnea Cardiovascular: No chest pain, No palpitations. Gastrointestinal: No nausea, No vomiting. No abdominal pain. Genital Tract: No discharge, No pain Urinary Tract: No dysuria, No discharge. MSK: No new/worsening joint pain, No new/worsening muscle ache. Endocrine: No cold intolerance, No polyuria Psychological: No suicidal, No homocidal ideation. - Constitutional Vitals: Temp Pulse Resp BP Pulse Ox 100.2 F H 99 20 110/78 98 03/19/19 21:18 03/19/19 21:18 03/19/19 21:18 03/19/19 21:18 03/19/19 21:18 General appearance: Present: A&O X 0 Exam: General Appearance: Appearing as age, well-nourished in moderate acute distress. Head: Atraumatic normocephalic Skin: Normal texture, normal turgor, warm, dry. Eyes: Conjunctivae not pale with no erythema, drainage, or ulcers. Anicteric. Neck: No Lymphadenopathy in the anterior/posterior cervical chain. No th yromegaly, masses or ulcers. Trachea midline. Heart: RRR, no murmurs. Capillary refill 3 seconds Lungs: No accessory muscle usage, lungs clear to auscultation bilaterally, no wheezes or crackles. Extremities: No pitting edema, No clubbing, No cyanosis. Abdomen: Non-distended, normoactive bowel sounds. non-tender to palpation, no hepatomegally. No guarding. Neuro: AOx3 with no new sensory loss or focal deficits. MSK: Strength 5/5 Upper extremity equal bilaterally. Strength 5/5 Lower extremity equal bilaterally. CVA tenderness right side Internal Med - H&P Results - Labs CBC & Chem 7: 03/20/19 05:11 03/20/19 05:11 Labs: Short CBC 03/19/19 Range/Units 17:38 WBC 26.5 H (4.3-11.1) K/mcL Hgb 14.6 (11.5-15.4) g/dL Hct 42.7 (35.3-44.9) % Plt Count 184 (140-400) K/mcL Neutrophils # 24.9 H (1.6-8.9) K/mcL BMP 03/19/19 17:38 Sodium 133 L Potassium 3.5 Chloride 103 Carbon Dioxide 21 L BUN 10 Creatinine 0.83 Glucose 183 H Calcium 8.4 L Cardiac Enzymes 03/19/19 Range/Units 17:38 Troponin I 0.03 (< 0.04) ng/mL Liver Function 03/19/19 Range/Units 17:38 Total Bilirubin 0.9 (0.3-1.0) mg/dL Direct Bilirubin 0.2 (0.0-0.2) mg/dL AST 17 (13-39) Units/L ALT 15 (7-52) Units/L Alkaline Phosphatase 61 (34-104) Units/L Albumin 3.8 (3.5-5.7) g/dL Urine 03/19/19 Range/Units 19:12 Urine Color Yellow (Yellow) Urine Clarity Cloudy A (Clear) Urine pH 6.0 (5.0-8.0) pH Units Ur Specific [place] 1.024 (1.010-1.025) Urine Protein 100 H (Neg-Trace) mg/dL Urine Glucose (UA) 100 H (Normal) mg/dL - Impressions ITS Impressions Chest X-Ray 03/19/19 17:28 IMPRESSION: Negative portable study. D/ / Sofia Lea Cha, MD / Sofia Lea Cha, MD Interpreting Provider: Sofia Lea Cha, MD Abdomen/Pelvis CT 03/19/19 18:06 IMPRESSION: 1. Nonobstructing calculi mid to upper left kidney. 2. No ureter calculus or hydronephrosis. 3. Normal appendix right lower quadrant. 4. Mild diverticulosis coli without CT evidence of acute diverticulitis. 5. Calcific atherosclerotic disease aorta. 6. No CT evidence of an acute intra-abdominal or intrapelvic process. D/ / Red Elias / Red Elias Interpreting Provider: Red Elias - Summary of Assessment and Plan Summary of Assessment and Plan: 1.Sepsis secondary to Acute Pyelonephritis: Urine negative Ceftriaxone check response in the a.m. Zofran for nausea, morphine for pain. 2.Hyperglycemia:A1c ordered. 3.Hypophosphatemia:Replaced 4.Hypocalcemia: Replaced DVT prophylaxis: heparin Disposition: Likely less than 2 day stay. - Time Spent With Patient Total time spent is greater than 36 minutes 50% in coordination of care (as documented) at patient's floor/unit and/or counseling patient: Greater than 35 minutes
[2019-03-19 22:47] LABS: VBG HCO3 20 mEq/L (21-27); VBG PCO2 40 mmHg (41-51); VBG PH 7.31 pH Units (7.32-7.42); VBG PO2 52 mmHg (25-50)
[2019-03-19 22:56] LABS: Estimated Average Glucose 126 mg/dl
[2019-03-19] MEDS: *HR* Heparin 5,000 UNIT/ML VIAL SQ SCH (23:09)
[2019-03-20 05:26] LABS: Basophils # 0.1 K/mcL (0.0-0.2); Basophils % 0.2 %; Hematocrit 38.8 % (35.3-44.9); Hemoglobin 12.8 g/dL (11.5-15.4); Immature Granulocytes % 1.5 % (0-4); Lymphocytes % 3.5 %; Mean Corpuscular Hemoglobin 30.5 pg (28.0-33.3); Mean Corpuscular Volume 92.6 fL (83.0-100.0); Mean Platelet Volume 10.8 fL (9.4-12.4); Monocytes % 7.3 %; Neutrophils # 23.7 K/mcL (1.6-8.9); Platelet Count 170 K/mcL (140-400); Red Blood Count 4.19 M/mcL (3.82-4.97); Red Cell Distribution Width 12.1 % (11.5-14.5); Segmented Neutrophils % 87.5 %; White Blood Count 27.1 K/mcL (4.3-11.1)
[2019-03-20 05:27] LABS: VBG HCO3 22 mEq/L (21-27); VBG PCO2 45 mmHg (41-51); VBG PH 7.29 pH Units (7.32-7.42); VBG PO2 42 mmHg (25-50)
[2019-03-20 05:33] LABS: INR 1.5; Prothrombin Time 16.8 Seconds (9.4-12.1)
[2019-03-20 05:46] LABS: Alanine Aminotransferase 12 Units/L (7-52); Albumin/Globulin Ratio 1.3 (1.1-2.2); Alkaline Phosphatase 54 Units/L (34-104); Aspartate Amino Transferase 15 Units/L (13-39); BUN/Creatinine Ratio 9 (6-26); Bilirubin,Total 0.5 mg/dL (0.3-1.0); Blood Urea Nitrogen 7 mg/dL (6-20); Calcium 7.7 mg/dL (8.6-10.3); Carbon Dioxide 22 mEq/L (23-29); Chloride 106 mEq/L (98-107); Globulin 2.3 g/dL (2.4-3.5); Glucose 105 mg/dL (70-105); Magnesium 1.6 mg/dL (1.6-2.6); Osmolality,Calculated 280 (280-300); Phosphorous 3.3 mg/dL (2.7-4.5); Potassium 3.9 mEq/L (3.5-5.1); Sodium 136 mEq/L (136-145); Total Protein 5.3 g/dL (6.4-8.9); eGFR For African Americans > 60 (> 60); eGFR For Non-African Americans > 60 (> 60)
[2019-03-20] MEDS: *HR* Heparin 5,000 UNIT/ML VIAL SQ SCH ×3 (05:57→21:18)
[2019-03-20 06:00] LABS: Platelet Estimate Normal (Normal)
[2019-03-20] MEDS ORDERED: Insulin LISPRO 300 UNITS/3 ML VIAL SQ SCH (07:30)
[2019-03-20] MEDS: Piperacillin/Tazobactam 3.375 GM in 0.9 % Sodium Chloride Mini Bag 100 ML IVPB SCH ×2 (09:12→15:49)
[2019-03-20 10:55] LABS: Acinetobacter baumannii by PCR Not Detected (Not Detect); Enterococcus by PCR Not Detected (Not Detect); Staphylococcus aureus by PCR Not Detected (Not Detect); Staphylococcus by PCR Not Detected (Not Detect); Streptococcus agalactiae(B)PCR Not Detected (Not Detect); Streptococcus by PCR Not Detected (Not Detect); Streptococcus pneumoniae PCR Not Detected (Not Detect); Streptococcus pyogenes (A) PCR Not Detected (Not Detect); blaKPC Carbapenem-Resist Gene Not Detected (Not Detect)
[2019-03-20 10:56] LABS: Candida albicans by PCR Not Detected (Not Detect); Candida glabrata by PCR Not Detected (Not Detect); Candida krusei by PCR Not Detected (Not Detect); Candida parapsilosis by PCR Not Detected (Not Detect); Candida tropicalis by PCR Not Detected (Not Detect); Enterobacter cloacae Cmplx PCR Not Detected (Not Detect); Escherichia coli by PCR DETECTED (Not Detect); Klebsiella oxytoca by PCR Not Detected (Not Detect); Klebsiella pneumoniae by PCR Not Detected (Not Detect); Proteus by PCR Not Detected (Not Detect); Pseudomonas aeruginosa by PCR Not Detected (Not Detect); Serratia marcescens by PCR Not Detected (Not Detect)
--- NOTE | 2019-03-20 15:09 | Electrocardiograph Report ---
[address] [place], [place] [address] Test Date: 2019-03-19 Pat Name: Caitlyn Sanchez Department: EXAM20 Room: 3A34 Gender: F Research Program Assistant: : 1975 Requested By: Terri Nagel Order Number: [id number] Reading MD: Иван Spencer Measurements Intervals [place] Rate: 111 P: 87 ME: 133 QRS: 249 QRSD: 75 T: 57 QT: 302 QTc: 411 Interpretive Statements Sinus tachycardia Left anterior fascicular block Poor R wave progression Electronically Signed On 03-20-2019 15:07:37 EDT by Иван Spencer
[2019-03-20] MEDS ORDERED: Albuterol 2.5 MG/3 ML NEBULIZER IH PRN (15:18)
[2019-03-20] MEDS: 0.9 % Sodium Chloride 1,000 ML IVC SCH (15:46)
--- NOTE | 2019-03-20 20:03 | Internal Med Progress Note ---
Hospitalist Progress Note - Encounter Date of Encounter: 03/20/19 Time of Encounter: 08:45 - Subjective Interval History: Ms Sanchez denies dysuria but continued to complain of flank pain. HIV screen was negative. Blood and urinary culture reveals gram-negative kathy GEN: Denies fever, chills or malaise HEENT: Denies headache blurriness, or dysphagia RESP: Denies SOB or cough CV: Denies chest pain or palpitations GI: Denies Nausea, vomiting, diarrhea or constipation Reviewed current in hospital medications with modifications see orders Reviewed Routine labs - Exam Vitals: Temp Pulse Resp BP Pulse Ox 102.2 F H 104 14 100/60 97 03/20/19 19:40 03/20/19 19:40 03/20/19 19:40 03/20/19 19:40 03/20/19 19:40 Exam: GEN: NAD, A&O x 3, Pleasant and conversant daughter at the bedside SKIN: [place] warm acyanotic not jaundice HEART: RRR, no murmurs LUNGS: CTA no wheeze or crackles, overall non labored ABDOMEN; Soft, non tender or distended, BS x 4 normactive EXT: No LE edema, Pedal pulses 1+, radial pulses 2+ PSYCH: Mood and affect is appropriate - Assessment and Plan (1) Sepsis Current Visit: Yes Status: Acute Assessment and Plan: Like due to pyelonephritis Blood and urine culture is now reveals gram-negative kathy she is febrile has leukocytosis continue Zosyn (2) Pyelonephritis Current Visit: Yes Status: Acute Assessment and Plan: Blood and urine culture reveals gram-negative rods continue Zosyn (3) DVT prophylaxis Current Visit: Yes Status: Acute Assessment and Plan: Heparin subcutaneous - Time Spent with Patient Total time spent is greater than 50% in coordination of care (as documented) at patient's floor/unit and/or counseling patient: Internal Medicine: Result - Labs CBC & Chem 7: 03/20/19 05:11 03/20/19 05:11 Labs: Short CBC 03/20/19 Range/Units 05:11 WBC 27.1 H (4.3-11.1) K/mcL Hgb 12.8 D (11.5-15.4) g/dL Hct 38.8 (35.3-44.9) % Plt Count 170 (140-400) K/mcL Neutrophils # 23.7 H (1.6-8.9) K/mcL BMP 03/20/19 05:11 Sodium 136 Potassium 3.9 Chloride 106 Carbon Dioxide 22 L BUN 7 Creatinine 0.82 Glucose 105 Calcium 7.7 L Liver Function 03/20/19 Range/Units 05:11 Total Bilirubin 0.5 (0.3-1.0) mg/dL AST 15 (13-39) Units/L ALT 12 (7-52) Units/L Alkaline Phosphatase 54 (34-104) Units/L Albumin 3.0 L (3.5-5.7) g/dL - ABG Interpretation ABG results: PT/INR, D-dimer PT 16.8 Seconds (9.4-12.1) H 03/20/19 05:11 - Impressions Impressions Head CT 03/20/19 09:04 IMPRESSION: No acute intracranial abnormality. D/ / Joe Jorgensen MD / Joe Jorgensen MD Interpreting Provider: Joe Jorgensen MD Consult Discharge Plan - Plan Referrals: Tam Stahl MD [Primary Care Provider] - (1) Sepsis Qualifiers: Sepsis type: sepsis due to unspecified organism Sepsis acute organ dysfunction status: without acute organ dysfunction Qualified Code(s): A41.9 - Sepsis, unspecified organism
[2019-03-21] MEDS: Acetaminophen IV 1,000 MG/100 ML INFUS..BTL IVPB SCH ×2 (00:19→08:23)
[2019-03-21] MEDS: Piperacillin/Tazobactam 3.375 GM in 0.9 % Sodium Chloride Mini Bag 100 ML IVPB SCH ×3 (00:21→18:00)
[2019-03-21 03:38] LABS: Basophils % 0.2 %; Eosinophils % 0.2 %; Hematocrit 36.6 % (35.3-44.9); Hemoglobin 12.2 g/dL (11.5-15.4); Immature Granulocytes % 0.6 % (0-4); Lymphocytes # 1.2 K/mcL (0.6-4.6); Lymphocytes % 7.6 %; Mean Corpuscular HGB Conc 33.3 g/dL (31.6-35.5); Mean Corpuscular Hemoglobin 29.9 pg (28.0-33.3); Mean Corpuscular Volume 89.7 fL (83.0-100.0); Mean Platelet Volume 10.7 fL (9.4-12.4); Monocytes # 1.7 K/mcL (0.0-1.3); Monocytes % 10.4 %; Neutrophils # 13.1 K/mcL (1.6-8.9); Platelet Count 159 K/mcL (140-400); Red Blood Count 4.08 M/mcL (3.82-4.97); Red Cell Distribution Width 11.9 % (11.5-14.5); White Blood Count 16.2 K/mcL (4.3-11.1)
[2019-03-21 03:56] LABS: Alanine Aminotransferase 14 Units/L (7-52); Albumin 2.7 g/dL (3.5-5.7); Albumin/Globulin Ratio 1.2 (1.1-2.2); Alkaline Phosphatase 60 Units/L (34-104); Aspartate Amino Transferase 17 Units/L (13-39); BUN/Creatinine Ratio 8 (6-26); Bilirubin,Direct 0.3 mg/dL (0.0-0.2); Bilirubin,Indirect 0.3 mg/dL (0.0-1.2); Bilirubin,Total 0.6 mg/dL (0.3-1.0); Blood Urea Nitrogen 7 mg/dL (6-20); Calcium 7.8 mg/dL (8.6-10.3); Carbon Dioxide 20 mEq/L (23-29); Chloride 107 mEq/L (98-107); Globulin 2.3 g/dL (2.4-3.5); Glucose 101 mg/dL (70-105); Magnesium 1.8 mg/dL (1.6-2.6); Osmolality,Calculated 274 (280-300); Potassium 3.7 mEq/L (3.5-5.1); Sodium 133 mEq/L (136-145); eGFR For African Americans > 60 (> 60); eGFR For Non-African Americans > 60 (> 60)
[2019-03-21] MEDS: 0.9 % Sodium Chloride 1,000 ML IVC SCH ×2 (04:29→14:58)
[2019-03-21] MEDS: *HR* Heparin 5,000 UNIT/ML VIAL SQ SCH ×3 (06:11→21:03)
[2019-03-21] MEDS ORDERED: Cholecalciferol (D-3) 1,000 UNIT (25MCG) TABLET PO SCH (09:00)
[2019-03-21] MEDS ORDERED: Acetaminophen 325 MG TABLET PO PRN (12:09)
--- NOTE | 2019-03-21 15:04 | Internal Med Progress Note ---
Hospitalist Progress Note - Encounter Date of Encounter: 03/21/19 Time of Encounter: 11:15 - Subjective Interval History: Ms Sanchez reports feeling better she is no longer febrile GEN: Denies fever, chills or malaise HEENT: Denies headache blurriness, or dysphagia RESP: Denies SOB or cough CV: Denies chest pain or palpitations GI: Denies Nausea, vomiting, diarrhea or constipation Reviewed current in hospital medications with modifications see orders Reviewed Routine labs - Exam Vitals: Temp Pulse Resp BP Pulse Ox 98.5 F 70 16 110/69 98 03/21/19 11:41 03/21/19 11:41 03/21/19 11:41 03/21/19 11:41 03/21/19 11:41 Exam: GEN: NAD, A&O x 3, Pleasant and conversant daughter at the bedside SKIN: warm acyanotic not jaundice HEART: RRR, no murmurs LUNGS: Slightly diminished but appears CTA no wheeze or crackles, overall non labored ABDOMEN; Soft, non tender or distended, BS x 4 normactive EXT: No LE edema, Pedal pulses 1+, radial pulses 2+ PSYCH: Mood and affect is appropriate - Assessment and Plan (1) Sepsis Current Visit: Yes Status: Acute Assessment and Plan: Like due to pyelonephritis Blood and urine culture is now reveals gram-negative kathy, urine culture now reveals pansensitive Escherichia coli she is febrile has leukocytosis continue Zosyn with hopes of the escalated into Augmentin at discharge tomorrow (2) Pyelonephritis Current Visit: Yes Status: Acute Assessment and Plan: Blood and urine culture reveals gram-negative rods, urine culture reveals pansensitive Escherichia coli continue Zosyn with hopes of descalating to Augmentin tomorrow at discharge once leukocytosis resolved tomorrow (3) Vitamin D deficiency Current Visit: Yes Status: Acute Assessment and Plan: Vitamin D level was 8 we will supplement 50, 000 iu qweek (4) Hyponatremia Current Visit: Yes Status: Acute Assessment and Plan: Sodium is 133-due poor oral intake repeat BMPin am she is otherwise asymptomatic (5) DVT prophylaxis Current Visit: Yes Status: Acute Assessment and Plan: Heparin subcutaneous - Time Spent with Patient Total time spent is greater than 50% in coordination of care (as documented) at patient's floor/unit and/or counseling patient: Internal Medicine: Result - Labs CBC & Chem 7: 03/21/19 03:23 03/21/19 03:23 Labs: Short CBC 03/21/19 Range/Units 03:23 WBC 16.2 H (4.3-11.1) K/mcL Hgb 12.2 (11.5-15.4) g/dL Hct 36.6 (35.3-44.9) % Plt Count 159 (140-400) K/mcL Neutrophils # 13.1 H (1.6-8.9) K/mcL BMP 03/21/19 03:23 Sodium 133 L Potassium 3.7 Chloride 107 Carbon Dioxide 20 L BUN 7 Creatinine 0.83 Glucose 101 Calcium 7.8 L Liver Function 03/21/19 Range/Units 03:23 Total Bilirubin 0.6 (0.3-1.0) mg/dL Direct Bilirubin 0.3 H (0.0-0.2) mg/dL AST 17 (13-39) Units/L ALT 14 (7-52) Units/L Alkaline Phosphatase 60 (34-104) Units/L Albumin 2.7 L (3.5-5.7) g/dL - ABG Interpretation ABG results: PT/INR, D-dimer PT 16.8 Seconds (9.4-12.1) H 03/20/19 05:11 Consult Discharge Plan - Plan Referrals: Tam Stahl MD [Primary Care Provider] - (1) Sepsis Qualifiers: Sepsis type: sepsis due to unspecified organism Sepsis acute organ dysfunction status: without acute organ dysfunction Qualified Code(s): A41.9 - Sepsis, unspecified organism
[2019-03-21] MEDS ORDERED: Ergocalciferol (VIT D2) 50,000 UNIT (1.25MG) CAP PO SCH (15:08)
[2019-03-22] MEDS: Piperacillin/Tazobactam 3.375 GM in 0.9 % Sodium Chloride Mini Bag 100 ML IVPB SCH ×2 (01:05→09:00)
[2019-03-22 04:38] LABS: Basophils # 0.1 K/mcL (0.0-0.2); Basophils % 0.4 %; Eosinophils # 0.1 K/mcL (0.0-0.6); Hematocrit 38.5 % (35.3-44.9); Hemoglobin 12.9 g/dL (11.5-15.4); Immature Granulocytes % 0.5 % (0-4); Lymphocytes # 1.7 K/mcL (0.6-4.6); Lymphocytes % 14.2 %; Mean Corpuscular HGB Conc 33.5 g/dL (31.6-35.5); Mean Corpuscular Hemoglobin 30.4 pg (28.0-33.3); Mean Corpuscular Volume 90.8 fL (83.0-100.0); Monocytes # 1.4 K/mcL (0.0-1.3); Monocytes % 11.5 %; Neutrophils # 8.6 K/mcL (1.6-8.9); Platelet Count 183 K/mcL (140-400); Red Blood Count 4.24 M/mcL (3.82-4.97); Red Cell Distribution Width 12.1 % (11.5-14.5); Segmented Neutrophils % 72.4 %; White Blood Count 11.9 K/mcL (4.3-11.1)
[2019-03-22 04:55] LABS: BUN/Creatinine Ratio 10 (6-26); Blood Urea Nitrogen 9 mg/dL (6-20); Carbon Dioxide 23 mEq/L (23-29); Chloride 108 mEq/L (98-107); Glucose 101 mg/dL (70-105); Magnesium 1.6 mg/dL (1.6-2.6); Osmolality,Calculated 283 (280-300); Potassium 3.8 mEq/L (3.5-5.1); Sodium 137 mEq/L (136-145); eGFR For African Americans > 60 (> 60); eGFR For Non-African Americans > 60 (> 60)
[2019-03-22] MEDS: *HR* Heparin 5,000 UNIT/ML VIAL SQ SCH (05:39)
--- NOTE | 2019-03-22 09:29 | Discharge Summary ---
- NOTES TO OUTPATIENT PROVIDER Notes to Outpatient Provider: Posthospital discharge for sepsis and pyelonephritis. Patient also has vitamin D deficiency and was started on ergocalceferol 50,000 IU qweek she will likely need 8 weeks of treatment and recheck Orders not resulted at time of discharge: Pending orders 03/19/19 17:38 Culture,Blood [BC] Stat 03/19/19 21:50 C.trach N.gonorrhoea DNA Quiroz U [MOLMIC] Stat 03/19/19 22:23 Culture,Blood [BC] Stat 03/20/19 06:28 Urinalysis reflex Microscopic [URIN] AM 0400 Date of Encounter: 03/22/19 Time of Encounter: 09:27 - Discharge Diagnosis (1) Sepsis Priority: Primary Status: Acute Assessment and Plan: Like due to pyelonephritis Blood and urine culture is now reveals gram-negative kathy, urine culture now reveals pansensitive Escherichia coli she is febrile has leukocytosis continue Zosyn with hopes of the descalated into Bactrim DS at discharge today for 14 days. Patient was encouraged to increase yogurt intake Qualifiers: Sepsis type: sepsis due to unspecified organism Sepsis acute organ dysfunction status: without acute organ dysfunction Qualified Code(s): A41.9 - Sepsis, unspecified organism (2) Pyelonephritis Priority: Primary Status: Acute Assessment and Plan: Blood and urine culture reveals gram-negative rods, urine culture reveals pansensitive Escherichia coli continue Zosyn with hopes of descalating to Bactrim DS for 14 days (3) Vitamin D deficiency Priority: Secondary Status: Acute Assessment and Plan: Vitamin D level was 8 we will supplement 50, 000 iu qweek follow-up to primary care physician (4) Hyponatremia Priority: Secondary Status: Acute Assessment and Plan: due poor oral intake repeat BMPin am she is otherwise asymptomatic, 137 today (5) DVT prophylaxis Priority: Secondary Status: Acute Assessment and Plan: Heparin subcutaneous, discharge today Hospital course: Ms. Sanchez is a 44 year old female was hospitalized for flank pain she met criteria for sepsis and was placed on empiric antimicrobial therapy with Zosyn woke up revealed pyelonephritis urine and initiatial blood cultures revealed Escherichia coli pansensitive. She will be discharged home on Bactrim DS for 14 days repeat blood culture has been negative so far. Patient on a laboratory workup revealed vitamin D deficiency. She was started on a vitamin D 50,000 international units every week she will need to follow up with her primary care physician Discharge discussed with: patient, nurse - Time Spent with Patient Total time spent providing and/or coordinating discharge services:35 mins Specific discharge activities: Please take all medications as prescribed and make sure you follow-up with your primary care physician - Discharge Medications Prescriptions: New Sulfamethoxazole/Trimeth DS [Bactrim DS] 1 each PO BID 14 Days #28 tablet Ergocalciferol (VITAMIN D2) [Drisdol (50,000 Unit)] 50,000 unit PO Th #4 capsule Continued Albuterol Sulfate [Proventil Inhaler] 2 puff IH Q6H PRN PRN Reason: Shortness Of Breath Albuterol Neb [Proventil Neb] 2.5 mg IH Q8H PRN PRN Reason: Wheezing Home Medications: Albuterol Neb [Proventil Neb] 2.5 mg IH Q8H PRN 03/19/19 [History] Albuterol Sulfate [Proventil Inhaler] 2 puff IH Q6H PRN 03/19/19 [History] Ergocalciferol (VITAMIN D2) [Drisdol (50,000 Unit)] 50,000 unit PO Th #4 capsule 03/22/19 [Rx] Sulfamethoxazole/Trimeth DS [Bactrim DS] 1 each PO BID 14 Days #28 tablet 03/22/19 [Rx] Allergies/Adverse Reactions: Allergy/AdvReac Type Severity Reaction Status Date / Time No Known Allergies Allergy Verified 03/19/19 17:21 Date of admission: 03/21/19 14:07 Primary care physician: Tam Stahl MD Discharging clinician: Bety Collins Anticipated date of discharge: 03/22/19 - Constitutional Vitals: Temp Pulse Resp BP Pulse Ox 99.3 F 85 16 123/80 98 03/22/19 06:35 03/22/19 06:35 03/22/19 06:35 03/22/19 06:35 03/22/19 06:35 General appearance: Present: A&O X 0 Exam: GEN: NAD, A&O x 3, Pleasant and conversant, daughter at the bedside SKIN: [place] warm acyanotic not jaundice HEART: RRR, no murmurs LUNGS: CTA no wheeze or crackles, overall non labored ABDOMEN; Soft, non tender or distended, BS x 4 normactive EXT: No LE edema, Pedal pulses 1+, radial pulses 2+ PSYCH: Mood and affect is appropriate - Patient Status Disposition: Home, Self-Care Condition: Good Functional capacity at discharge: independent ambulation Overall status at discharge: patient is back to baseline - Discharge Instructions Follow Up With: Tam Stahl MD [Primary Care Provider] - - Diet and Activity Activity: resume usual activities as tolerated Diet: low fat, low cholesterol, low salt diet
[2019-03-22 10:04] VITALS: BP 118/73
== END 2019-03-22 12:31 | disposition home or self-care (01) | DRG 720 ==
LOC: EMEROOARM 17:18 → 3ANU 17:18 → SUATTDRO 20:46 → 3ANU 21:41
PROVIDERS: ADMIT Internal Medicine; ATTEND Pharmacist

== ENCOUNTER 2019-12-26 11:57 | Observation (INO) ==
[2019-12-26 12:57] LABS: Basophils # 0.1 K/mcL (0.0-0.2); Basophils % 0.4 %; Eosinophils # 0.2 K/mcL (0.0-0.6); Eosinophils % 1.9 %; Hematocrit 41.2 % (35.3-44.9); Hemoglobin 13.6 g/dL (11.5-15.4); Immature Granulocytes % 0.5 % (0-4); Lymphocytes # 1.4 K/mcL (0.6-4.6); Lymphocytes % 11.7 %; Mean Corpuscular Volume 93.8 fL (83.0-100.0); Mean Platelet Volume 10.7 fL (9.4-12.4); Monocytes # 1.1 K/mcL (0.0-1.3); Monocytes % 8.5 %; Neutrophils # 9.5 K/mcL (1.6-8.9); Platelet Count 200 K/mcL (140-400); Red Blood Count 4.39 M/mcL (3.82-4.97); Red Cell Distribution Width 11.9 % (11.5-14.5); White Blood Count 12.4 K/mcL (4.3-11.1)
[2019-12-26 13:01] LABS: Prothrombin Time 11.6 Seconds (9.4-12.1)
[2019-12-26 13:04] LABS: Activated Partial Thrombo Time 28.6 Seconds (26.0-36.0)
[2019-12-26 13:16] LABS: BUN/Creatinine Ratio 17 (6-26); Blood Urea Nitrogen 11 mg/dL (6-20); Carbon Dioxide 25 mEq/L (23-29); Chloride 107 mEq/L (98-107); Glucose 100 mg/dL (70-105); Osmolality,Calculated 285 (280-300); Potassium 3.9 mEq/L (3.5-5.1); Sodium 138 mEq/L (136-145); eGFR For African Americans > 60 (> 60); eGFR For Non-African Americans > 60 (> 60)
[2019-12-26] MEDS ORDERED: *HR* Heparin 5,000 UNIT/ML VIAL IVP PRN (14:31)
[2019-12-26] MEDS ORDERED: *HR* Heparin 5,000 UNIT/ML VIAL IVP ONE (14:31)
[2019-12-26] MEDS ORDERED: Naloxone 0.4 MG/ML INJ IVP PRN (14:39)
[2019-12-26] MEDS ORDERED: Acetaminophen 325 MG TABLET PO PRN (14:39)
[2019-12-26] MEDS ORDERED: Ondansetron 4 MG/2 ML VIAL IVP PRN (14:39)
[2019-12-26] MEDS: Heparin 25,000 UNIT/250 ML D5W 25,000 UNIT/250 ML IV.SOLN IVC SCH (14:59)
[2019-12-26 15:15] LABS: Albumin 3.8 g/dL (3.5-5.7); Albumin/Globulin Ratio 1.4 (1.1-2.2); Bilirubin,Direct 0.1 mg/dL (0.0-0.2); Bilirubin,Indirect 0.6 mg/dL (0.0-1.0); Bilirubin,Total 0.7 mg/dL (0.3-1.0); Globulin 2.7 g/dL (2.4-3.5); Total Protein 6.5 g/dL (6.4-8.9)
[2019-12-26] MEDS ORDERED: Ipratropium/Albuterol Neb 3 ML IH PRN (17:36)
[2019-12-26] MEDS: *HR* Heparin 5,000 UNIT/ML VIAL IVP PRN (21:28)
[2019-12-27 04:00] LABS: Basophils # 0.1 K/mcL (0.0-0.2); Basophils % 0.6 %; Eosinophils # 0.3 K/mcL (0.0-0.6); Eosinophils % 2.6 %; Hematocrit 39.8 % (35.3-44.9); Hemoglobin 13.4 g/dL (11.5-15.4); Immature Granulocytes % 0.3 % (0-4); Lymphocytes # 2.4 K/mcL (0.6-4.6); Lymphocytes % 19.2 %; Mean Corpuscular HGB Conc 33.7 g/dL (31.6-35.5); Mean Corpuscular Hemoglobin 30.9 pg (28.0-33.3); Mean Corpuscular Volume 91.9 fL (83.0-100.0); Mean Platelet Volume 10.9 fL (9.4-12.4); Monocytes # 1.2 K/mcL (0.0-1.3); Monocytes % 9.1 %; Neutrophils # 8.6 K/mcL (1.6-8.9); Platelet Count 210 K/mcL (140-400); Red Blood Count 4.33 M/mcL (3.82-4.97); Red Cell Distribution Width 11.7 % (11.5-14.5); Segmented Neutrophils % 68.2 %; White Blood Count 12.6 K/mcL (4.3-11.1)
[2019-12-27 04:16] LABS: BUN/Creatinine Ratio 17 (6-26); Blood Urea Nitrogen 9 mg/dL (6-20); Calcium 8.3 mg/dL (8.6-10.3); Carbon Dioxide 20 mEq/L (23-29); Chloride 105 mEq/L (98-107); Glucose 85 mg/dL (70-105); Magnesium 1.9 mg/dL (1.6-2.6); Osmolality,Calculated 276 (280-300); Potassium 3.6 mEq/L (3.5-5.1); Sodium 134 mEq/L (136-145); eGFR For African Americans > 60 (> 60); eGFR For Non-African Americans > 60 (> 60)
[2019-12-27] MEDS: *HR* Heparin 5,000 UNIT/ML VIAL IVP PRN (04:19)
[2019-12-27] MEDS ORDERED: Ondansetron 4 MG/2 ML VIAL IVP ONE ×3 (18:19→23:47)
[2019-12-27] MEDS ORDERED: *HR* Meperidine 25 MG/ML SYRINGE IVP PRN (18:19)
[2019-12-27] MEDS ORDERED: *HR* OxyCODONE Immed Rel 5 MG TABLET PO PRN (18:19)
[2019-12-27] MEDS ORDERED: WATER FOR INJ IVPB ONE (19:15)
[2019-12-27] MEDS ORDERED: ALTEPLASE IVPB ONE (19:15)
[2019-12-27] MEDS ORDERED: Heparin 1,000 UNITS/500 mL 1,000 ML ONE (19:22)
[2019-12-27] MEDS ORDERED: Lidocaine 1% 20 ML MDV ONE (19:22)
[2019-12-27] MEDS ORDERED: Isovue-300 50ML VIAL ONE (19:22)
[2019-12-27] MEDS ORDERED: Bupivacaine-MPF 0.25% 10 ML VIAL ONE (19:22)
[2019-12-27] MEDS ORDERED: Heparin 1,000 UNITS/500 mL 500 ML ONE (19:48)
[2019-12-27] MEDS ORDERED: CeFAZolin Syr 2,000MG/20 ML 2,000 MG/20 ML SYRINGE IVPB ONE (20:35)
[2019-12-27] MEDS ORDERED: *HR* Rocuronium Bromide 50 MG/5 ML VIAL ONE (20:55)
[2019-12-27] MEDS ORDERED: *HR* FentaNYL (PF) 100 MCG/2 ML VIAL ONE ×2 (20:55→22:07)
[2019-12-27] MEDS ORDERED: *HR* Propofol 200 MG/20 ML VIAL IVP ONE (20:56)
[2019-12-27] MEDS ORDERED: *HR* Midazolam HCl 2 MG/2 ML VIAL ONE (20:56)
[2019-12-27] MEDS ORDERED: *HR* Labetalol 20 MG/4 ML SYRINGE IVP ONE ×2 (23:04→23:41)
[2019-12-27] MEDS: *HR* HYDROmorphone PF 0.5 MG/0.5 ML SYRINGE IVP PRN ×2 (23:29→23:50)
[2019-12-27] MEDS ORDERED: Albuterol 2.5 MG/3 ML NEBULIZER ONE (23:41)
[2019-12-27] MEDS: *HR* Labetalol 20 MG/4 ML SYRINGE IVP PRN ×2 (23:43→23:59)
[2019-12-27] MEDS ORDERED: Albuterol 2.5 MG/3 ML NEBULIZER IH ONE (23:47)
[2019-12-28] MEDS ORDERED: *HR* HYDROcodone/Acet 5/325 mg TABLET PO PRN (00:47)
[2019-12-28] MEDS ORDERED: Ipratropium/Albuterol Neb 3 ML IH PRN (00:47)
[2019-12-28] MEDS ORDERED: *HR* Heparin 5,000 UNIT/ML VIAL IVP PRN ×2 (00:47)
[2019-12-28] MEDS ORDERED: Ondansetron 4 MG/2 ML VIAL IVP PRN (00:47)
[2019-12-28] MEDS ORDERED: Naloxone 0.4 MG/ML INJ IVP PRN (00:47)
[2019-12-28] MEDS ORDERED: Acetaminophen 325 MG TABLET PO PRN (00:47)
[2019-12-28] MEDS ORDERED: *HR* OxyCODONE Immed Rel 5 MG TABLET PO PRN (00:47)
[2019-12-28] MEDS ORDERED: Heparin 25,000 UNIT/250 ML D5W 25,000 UNIT/250 ML IV.SOLN IVC SCH (00:47)
[2019-12-28] MEDS ORDERED: Metoclopramide 10 MG/2 ML VIAL IVP ONE ×2 (01:09→05:51)
[2019-12-28] MEDS ORDERED: Scopolamine Patch 1.5 MG PATCH.TD72 TD SCH (03:00)
[2019-12-28 03:10] LABS: Basophils % 0.2 %; Hematocrit 38.1 % (35.3-44.9); Hemoglobin 12.7 g/dL (11.5-15.4); Immature Granulocytes % 0.5 % (0-4); Mean Corpuscular HGB Conc 33.3 g/dL (31.6-35.5); Mean Corpuscular Hemoglobin 31.4 pg (28.0-33.3); Mean Corpuscular Volume 94.1 fL (83.0-100.0); Mean Platelet Volume 10.8 fL (9.4-12.4); Monocytes # 1.4 K/mcL (0.0-1.3); Monocytes % 7.4 %; Neutrophils # 16.7 K/mcL (1.6-8.9); Platelet Count 195 K/mcL (140-400); Red Blood Count 4.05 M/mcL (3.82-4.97); Red Cell Distribution Width 11.6 % (11.5-14.5); Segmented Neutrophils % 86.9 %
[2019-12-28 03:11] LABS: White Blood Count 19.2 K/mcL (4.3-11.1)
[2019-12-28] MEDS ORDERED: 0.9 % Sodium Chloride 1,000 ML IVC SCH (03:45)
[2019-12-28 07:46] LABS: BUN/Creatinine Ratio 20 (6-26); Blood Urea Nitrogen 15 mg/dL (6-20); Calcium 8.2 mg/dL (8.6-10.3); Carbon Dioxide 16 mEq/L (23-29); Chloride 105 mEq/L (98-107); Glucose 180 mg/dL (70-105); Osmolality,Calculated 287 (280-300); Potassium 4.7 mEq/L (3.5-5.1); Sodium 136 mEq/L (136-145); eGFR For African Americans > 60 (> 60); eGFR For Non-African Americans > 60 (> 60)
[2019-12-28] MEDS: Heparin 25,000 UNIT/250 ML D5W 25,000 UNIT/250 ML IV.SOLN IVC SCH (08:21)
[2019-12-28] MEDS ORDERED: amLODIPine 5 MG TABLET PO SCH ×2 (09:00)
[2019-12-28] MEDS ORDERED: *HR* Rivaroxaban 15 MG TABLET PO SCH ×2 (11:00)
[2019-12-28 11:05] VITALS: BP 118/79
== END 2019-12-28 12:30 | disposition home or self-care (01) ==
LOC: EMEROOARM 11:57 → 3ANU 11:57 → 2NNU 12-28 02:44
PROVIDERS: ADMIT Pharmacist; ATTEND Pharmacist